=== PATIENT | female | born 1960 | race Caucasian/White ===

== ENCOUNTER → 2018-03-15 15:10 | Outpatient (CLI) | payer OTHER, MEDICAID, SELFPAY ==
--- NOTE | 2018-03-15 15:17 | DI.RAD.S_ITS ---
PROCEDURE: XR HIP W PEL IF DONE LT 2V INDICATIONS: lower back pain TECHNIQUE: 3 views of the hip were acquired. COMPARISON: [facility], CR, XR LUMBAR SPINE MIN 4V, 03/15/2018, 15:23. FINDINGS: Bones: No fractures or dislocations. No suspicious bony lesions. The visualized pelvic ring appears intact. There is deformity of the left femoral neck likely sequelae of old injury. Severe secondary arthritis of the left hip is present. There is moderate right hip joint degeneration. Noted is made of osteitis pubis. Soft tissues: No suspicious soft tissue calcifications or masses. IMPRESSION: 1. Deformity of the left femoral neck suspicious for remote injury. 2. Severe left hip joint degeneration. 3. Moderate right hip joint degeneration. 4. Osteitis pubis. Dictated by: Viviana Ramirez M.D. on 03/15/2018 at 16:21 Approved by: Viviana Ramirez M.D. on 03/15/2018 at 16:26
--- NOTE | 2018-03-15 15:17 | DI.RAD.S_ITS ---
PROCEDURE: XR LUMBAR SPINE MIN 4V INDICATIONS: lower back pain TECHNIQUE: 5 views of the lumbar spine were acquired. COMPARISON: [facility], MR, LUMBAR SPINE W/O CONTRAST, 02/27/2009, 8:02. [facility], MR, MR LUMBAR SPINE WITHOUT CONTRAST, 12/02/2017, 20:38. FINDINGS: Bones: 5 nonrib-bearing vertebrae are present. Moderate levoscoliosis. There is normal bony alignment. No vertebral body compression fractures. Mild degenerative disc disease noted in lumbar spine. There is severe facet arthropathy at L4-L5 and L5-S1. No suspicious bony lesions. Soft tissues: Overlying bowel gas pattern is normal. No suspicious soft tissue calcifications. Cholecystectomy clips are noted. Oblique images: No pars defects. IMPRESSION: 1. Moderate scoliosis. 2. Mild degenerative disc disease scattered in lumbar spine. 3. Severe facet arthropathy at L4-L5 and L5-S1. Dictated by: Viviana Ramirez M.D. on 03/15/2018 at 16:27 Approved by: Viviana Ramirez M.D. on 03/15/2018 at 16:30
== END ==
PROVIDERS: Visit Provider Physical Medicine & Rehabilitation
DX: M47.27 Other spondylosis with radiculopathy, lumbosacral region (principal); M47.26 Other spondylosis with radiculopathy, lumbar region; M16.0 Bilateral primary osteoarthritis of hip; M51.26 Other intervertebral disc displacement, lumbar region; M41.9 Scoliosis, unspecified; M51.36 Other intervertebral disc degeneration, lumbar region
CPT/HCPCS: 72110; 73502

== ENCOUNTER → 2018-06-07 11:43 | Outpatient (CLI) | payer OTHER, MEDICAID, SELFPAY ==
--- NOTE | 2018-06-07 11:47 | DI.RAD.S_ITS ---
PROCEDURE: XR HIP W PEL IF DONE LT 2V INDICATIONS: severe left hip and groin pain TECHNIQUE: AP pelvis with lateral view(s) of the left hip(s). COMPARISON: [facility], , XR HIP W PEL IF DONE LT 2V, 03/15/2018, 15:23. FINDINGS: Bones: No fractures or dislocations. Pelvic ring appears intact. No suspicious bony lesions. There is severe osteophytic changes in left hip with joint space narrowing, subchondral sclerosis and osteophyte formation. The left femoral head is deformed. There is deformity of left femoral neck, likely sequelae of old injury. There is moderate left hip joint degeneration. Degenerative disc disease noted in the lower lumbar spine. Soft tissues: The visualized bowel gas pattern is normal. No suspicious soft tissue calcifications. IMPRESSION: 1. Severe osteoarthritis of the left hip. 2. Suspected remote injury of the left femoral neck. 3. Moderate right hip joint degeneration. 4. Degenerative disc disease in the lower lumbar spine. Dictated by: Viviana Ramirez M.D. on 06/07/2018 at 12:37 Approved by: Viviana Ramirez M.D. on 06/07/2018 at 12:41
== END ==
PROVIDERS: Visit Provider Physical Medicine & Rehabilitation
DX: M25.552 Pain in left hip (principal); M16.0 Bilateral primary osteoarthritis of hip; M51.36 Other intervertebral disc degeneration, lumbar region; R10.30 Lower abdominal pain, unspecified; M86.9 Osteomyelitis, unspecified
CPT/HCPCS: 73502

== ENCOUNTER → 2018-09-12 16:28 | Outpatient (CLI) | payer OTHER, MEDICAID, SELFPAY ==
--- NOTE | 2018-09-12 16:30 | DI.RAD.S_ITS ---
PROCEDURE: XR HIP W PEL IF DONE LT MIN 4V INDICATIONS: s/p ERICH, left hip pain TECHNIQUE: AP pelvis and lateral views of the left and right hip acquired. COMPARISON: [facility], CR, XR LUMBAR SPINE MIN 4V, 09/12/2018, 16:47. [facility], CR, XR PELVIS WITH LATERAL HIP LEFT, 06/07/2018, 11:55. [facility], CR, XR HIP W PEL IF DONE LT 2V, 06/07/2018, 11:55. [facility], CR, XR INTRAOPERATIVE FLUORO UP TO 1 HOUR, 08/24/2018, 8:57. FINDINGS: Bones: Patient is status post left hip arthroplasty, with hardware components in expected positions. The hip joint appears congruent. The visualized bony structures appear intact. Mild degenerative joint disease is noted in right hip. There is degenerative changes of the sacroiliac joints bilaterally and the pubic symphysis. Soft tissues: Overlying postoperative changes are noted. No suspicious soft tissue densities. IMPRESSION: 1. Left hip arthroplasty with prosthesis in anatomic alignment. 2. Mild degenerative joint disease right hip. 3. Degenerative changes of sacroiliac joints bilaterally and pubic symphysis. Dictated by: Viviana Ramirez M.D. on 09/13/2018 at 15:27 Approved by: Viviana Ramirez M.D. on 09/13/2018 at 15:30
--- NOTE | 2018-09-12 16:30 | DI.RAD.S_ITS ---
PROCEDURE: XR LUMBAR SPINE MIN 4V INDICATIONS: low back pain TECHNIQUE: 5 views of the lumbar spine were acquired. COMPARISON: [facility], MR, MR LUMBAR SPINE WITHOUT CONTRAST, 12/02/2017, 20:38. [facility], CR, XR LUMBAR SPINE MIN 4V, 03/15/2018, 15:23. FINDINGS: Bones: 5 nonrib-bearing vertebrae are present. There is moderate levoscoliosis. No vertebral body compression fractures. No suspicious bony lesions. There is mild degenerative disease is at T10-T11, T11-T12, T12-L1. There is severe bilateral facet arthropathy at L4-L5 and L5-S1. Note is made of left hip arthroplasty. Soft tissues: Overlying bowel gas pattern is normal. No suspicious soft tissue calcifications. Cholecystectomy clips are noted. Oblique images: No pars defects. IMPRESSION: 1. Degenerative disc the facet disease in lumbar spine. 2. Scoliosis. Dictated by: Viviana Ramirez M.D. on 09/13/2018 at 17:30 Approved by: Viviana Ramirez M.D. on 09/13/2018 at 17:34
== END ==
PROVIDERS: PCP Family Medicine; Visit Provider Physical Medicine & Rehabilitation
DX: M25.552 Pain in left hip (principal); M16.11 Unilateral primary osteoarthritis, right hip; M54.5 Low back pain; M51.36 Other intervertebral disc degeneration, lumbar region; M47.898 Other spondylosis, sacral and sacrococcygeal region; M41.9 Scoliosis, unspecified; Z96.642 Presence of left artificial hip joint
CPT/HCPCS: 72110; 73522